=== PATIENT | female | born 1995 | race Caucasian/White ===

== ENCOUNTER 2017-04-26 18:10 | Emergency (ER) | payer OTHER ==
[~2017-04-26] VITALS: Ht 177.8 cm; Wt 110.9 kg
[2017-04-26 18:13] VITALS: TEMP 36.7; Ht 177.8 cm; Wt 110.9 kg
[2017-04-26] MEDS ORDERED: SODIUM CHLORIDE 0.9% 1000ML 1,000 ML IV STA (18:24)
[2017-04-26] MEDS ORDERED: ONDANSETRON INJ 2 MG/ML 2 ML VIAL IV STA (18:24)
[2017-04-26] MEDS: MoRPHine SULFATE 4 MG/ML 1 ML CARP\\VIAL IV PRN ×2 (18:38→21:05)
[2017-04-26 18:48] LABS: BASO % 0.2 %; BASO ABS # 0.02 K/uL (0-0.2); COMPLETE YES; EOS % 0.8 %; HEMATOCRIT 42.4 % (37-47); IG% 0.3 %; LYMPH % 17.5 %; LYMPH ABS # 2.08 K/uL (1.2-3.4); MEAN CORPUSCULAR HEMOGLOBIN 28.9 pg (25-34); MEAN PLATELET VOLUME 11.5 fL (7.4-10.4); MONO % 6.6 %; NEUT % 74.6 %; PLATELET COUNT 272 K/uL (130-400); RED BLOOD COUNT 4.99 M/uL (4.2-5.4)
[2017-04-26 18:56] LABS: URINE APPEARANCE CLOUDY (CLEAR); URINE BILIRUBIN NEG (NEG); URINE COLOR YELLOW; URINE EPITHELIAL CELL AUTO >30 /lpf (0-5); URINE NITRITE NEG (NEG); URINE PH 6.5 (4.5-7.5); URINE SPECIFIC GRAVITY 1.017 (1.000-1.030); UROBILINOGEN NEG (NEG); ZZUR CULT IF INDIC CLEAN CATCH YES
[2017-04-26 18:58] LABS: MANUAL MICROSCOPIC REQUIRED? NO; REVIEW REQ? YES
[2017-04-26 19:01] LABS: BUN/CREATININE RATIO 8.3 (10-20); CALCIUM 10.2 mg/dl (8.5-10.1); CREATININE 0.92 mg/dl (0.60-1.20); POTASSIUM 3.6 mmol/L (3.5-5.1)
[2017-04-26] MEDS ORDERED: OPTIRAY 320 IV PRN (20:45)
--- NOTE | 2017-04-26 21:12 | DIAGNOSTIC IMAGING REPORT ---
CT SCAN OF THE ABDOMEN AND PELVIS WITH IV CONTRAST CLINICAL HISTORY: Right lower quadrant abdominal pain. Nausea and dizziness. COMPARISON STUDY: No priors. TECHNIQUE: Following the IV administration of 115 cc of Optiray 320, CT scan of the abdomen and pelvis is performed from the lung bases to the proximal femora. Images are reviewed in the axial, sagittal, and coronal planes. IV contrast was administered without complication. Automated dose control exposure was utilized. CT DOSE: 952.37 mGy.cm FINDINGS: Lung bases: The heart is normal in size and without pericardial effusion. The lung bases are clear. Liver: The contrast-enhanced liver is enlarged, measuring 20 cm in length. The liver demonstrates diffusely diminished attenuation consistent with hepatic steatosis. There is no intrahepatic biliary ductal dilatation. The hepatic veins and portal veins are patent. Gallbladder: Unremarkable. Spleen: The spleen is enlarged measuring 14.6 cm in length. Pancreas: Unremarkable. Adrenal glands: Unremarkable. Kidneys: The contrast enhanced kidneys are normal in size and without hydronephrosis. The kidneys enhance symmetrically. Abdominal vasculature: The abdominal aorta is normal in course and caliber. Bowel: The small bowel and colon are normal in course and caliber. The appendix is well-visualized and normal. Peritoneum: There is no intraperitoneal free air or abdominal ascites. There is a fat-containing umbilical hernia. Lymphadenopathy: None. Pelvic viscera: The bladder, uterus, and adnexa are normal as visualized. There are numerous bilateral ovarian follicles. There is a small volume of free fluid in the cul-de-sac. Skeletal structures: No lytic or blastic lesions are seen. Large posterior disc bulges are suggested at L4-L5 and L5-S1. Sclerotic change is noted in the sacroiliac joints. IMPRESSION: 1. There are no acute infectious or inflammatory findings in the abdomen or pelvis. 2. Hepatomegaly and hepatic steatosis. 3. Splenomegaly. 4. There is trace and likely physiologic free fluid in the cul-de-sac. Electronically signed by: Giovanni Sosa M.D. 04/26/2017 9:10 PM Dictated Date/Time: 04/26/2017 9:06 PM
[2017-04-27] MEDS ORDERED: SULF800T23 PO (00:07)
[2017-04-27] MEDS ORDERED: SEPTRA DS HOME PACK 1 EA VIAL PO ONE (00:15)
[2017-04-27 00:21] VITALS: BP 141/71; PULSE 65; O2SAT 99
--- NOTE | 2017-04-27 02:59 | EMERGENCY ROOM VISIT NOTE ---
History Report prepared by Nicky: Nova Arnold Under the Supervision of: Dr. Xander Epstein M.D. First contact with patient: 18:15 Chief Complaint: ABDOMINAL PAIN Stated Complaint: SHARP PAIN IN RT SIDE, NAUSEA, DIZZY Nursing Triage Summary: Pt presents with right sided abd pain since Fri, worsening. N/V. Denies fever/chills. Denies back pain or urinary s/sx. History of Present Illness The patient is a 21 year old female who presents to the Emergency Room with complaints of intermittent abdominal pain starting two days ago. The patient currently rates her pain as a 7/10 in severity. The patient describes her pain as sharp. She reports that it has continued to worsen and that the episodes have started coming closer together. The patient notes that the pain is worse with movement and that it is best when she is sitting up. The patient notes that she took Tylenol with no relief. She notes her last normal menstrual period was 3 weeks ago. The patient complains of nausea, loss of appetite, and vomiting. The patient denies LOC, headache, fevers, chills, diaphoresis, visual changes, neck pain, chest pain, breathing difficulties, back pain, melena, hematochezia, urinary symptoms, pelvic pain, vaginal bleeding, vaginal discharge , numbness, weakness, lymphadenopathy, rash, or other complaints. Source of History: patient Onset: two days ago Position: abdomen Symptom Intensity: 7/10 Quality: sharp Timing: intermittent, worsening Modifying Factors (Worsening): movement Modifying Factors (Relieving): other (sitting up) Associated Symptoms: + nausea, + vomiting Note: The patient complains of loss of appetite. Review of Systems See HPI for pertinent positives and negatives. A total of ten systems were reviewed and were otherwise negative. Past Medical & Surgical Medical Problems: (1) Hx of migraines Family History Appendicitis Social History Smoking Status: Never Smoker Marital Status: single Housing Status: lives with roommate Occupation Status: student Current/Historical Medications Scheduled Sulfa/Trimethoprim (Bactrim Ds 800MG/160MG), 1 TAB PO BID Allergies Coded Allergies: No Known Allergies (Unverified , 04/26/17) Physical Exam Vital Signs Date Time Temp Pulse Resp B/P (MAP) Pulse Ox O2 Delivery O2 Flow Rate FiO2 04/27/17 00:21 65 18 141/71 99 7/2/17 23:39 67 18 145/78 99 Room Air 04/26/17 22:00 60 16 130/67 99 Room Air 04/26/17 20:00 65 16 139/74 98 Room Air 04/26/17 19:19 63 04/26/17 18:13 36.7 73 18 159/105 95 Room Air Physical Exam GENERAL: Awake, alert, well-appearing, in no distress HENT: Normocephalic, atraumatic. Oropharynx unremarkable. EYES: Normal conjunctiva. Sclera non-icteric. NECK: Supple. No nuchal rigidity. FROM. No JVD. RESPIRATORY: Clear to auscultation. CARDIAC: Regular rate, normal rhythm. Extremities warm and well perfused. Pulses equal. ABDOMEN: Soft, non-distended. Right lower quadrant tenderness to palpation. Tenderness to percussion. No rebound or guarding. No masses. RECTAL: Deferred. MUSCULOSKELETAL: Chest examination reveals no tenderness. The back is symmetrical on inspection without obvious abnormality. There is right CVA tenderness to palpation. No joint edema. LOWER EXTREMITIES: Calves are equal size bilaterally and non-tender. No edema. No discoloration. NEURO: Normal sensorium. No sensory or motor deficits noted. SKIN: No rash or jaundice noted. Medical Decision & Procedures ER Provider Diagnostic Interpretation: Radiology results as stated below per my review and radiologist interpretation: CT SCAN OF THE ABDOMEN AND PELVIS WITH IV CONTRAST CLINICAL HISTORY: Right lower quadrant abdominal pain. Nausea and dizziness. COMPARISON STUDY: No priors. TECHNIQUE: Following the IV administration of 115 cc of Optiray 320, CT scan of the abdomen and pelvis is performed from the lung bases to the proximal femora. Images are reviewed in the axial, sagittal, and coronal planes. IV contrast was administered without complication. Automated dose control exposure was utilized. CT DOSE: 952.37 mGy.cm FINDINGS: Lung bases: The heart is normal in size and without pericardial effusion. The lung bases are clear. Liver: The contrast-enhanced liver is enlarged, measuring 20 cm in length. The liver demonstrates diffusely diminished attenuation consistent with hepatic steatosis. There is no intrahepatic biliary ductal dilatation. The hepatic veins and portal veins are patent. Gallbladder: Unremarkable. Spleen: The spleen is enlarged measuring 14.6 cm in length. Pancreas: Unremarkable. Adrenal glands: Unremarkable. Kidneys: The contrast enhanced kidneys are normal in size and without hydronephrosis. The kidneys enhance symmetrically. Abdominal vasculature: The abdominal aorta is normal in course and caliber. Bowel: The small bowel and colon are normal in course and caliber. The appendix is well-visualized and normal. Peritoneum: There is no intraperitoneal free air or abdominal ascites. There is a fat-containing umbilical hernia. Lymphadenopathy: None. Pelvic viscera: The bladder, uterus, and adnexa are normal as visualized. There are numerous bilateral ovarian follicles. There is a small volume of free fluid in the cul-de-sac. Skeletal structures: No lytic or blastic lesions are seen. Large posterior disc bulges are suggested at L4-L5 and L5-S1. Sclerotic change is noted in the sacroiliac joints. IMPRESSION: 1. There are no acute infectious or inflammatory findings in the abdomen or pelvis. 2. Hepatomegaly and hepatic steatosis. 3. Splenomegaly. 4. There is trace and likely physiologic free fluid in the cul-de-sac. Electronically signed by: Giovanni Sosa M.D. 04/26/2017 9:10 PM Dictated Date/Time: 04/26/2017 9:06 PM US RUQ: Findings: No gallstones. No wall thickening. Normal caliber CBD. Liver generous in size measuring over 18 cm with increased echogenicity. Pancreas largely obscured. Pancreas had an unremarkable appearance on recent CT. Radiologist: Jovani Serrano M.D. Study ready at 23:33 and initial results transmitted at 00:01. Laboratory Results 04/26/17 17:34 Red Blood Count 4.99, Mean Corpuscular Volume 85.0, Mean Corpuscular Hemoglobin 28.9, Mean Corpuscular Hemoglobin Concent 34.0, Mean Platelet Volume 11.5, Neutrophils (%) (Auto) 74.6, Lymphocytes (%) (Auto) 17.5, Monocytes (%) (Auto) 6.6, Eosinophils (%) (Auto) 0.8, Basophils (%) (Auto) 0.2, Neutrophils # (Auto) 8.89, Lymphocytes # (Auto) 2.08, Monocytes # (Auto) 0.78, Eosinophils # (Auto) 0.10, Basophils # (Auto) 0.02 04/26/17 17:34 Test 04/26/17 17:34 04/26/17 18:40 White Blood Count 11.90 K/uL (4.8-10.8) Red Blood Count 4.99 M/uL (4.2-5.4) Hemoglobin 14.4 g/dL (12.0-16.0) Hematocrit 42.4 % (37-47) Mean Corpuscular Volume 85.0 fL (80-100) Mean Corpuscular Hemoglobin 28.9 pg (25-34) Mean Corpuscular Hemoglobin Concent 34.0 g/dl (32-36) Platelet Count 272 K/uL (130-400) Mean Platelet Volume 11.5 fL (7.4-10.4) Neutrophils (%) (Auto) 74.6 % Lymphocytes (%) (Auto) 17.5 % Monocytes (%) (Auto) 6.6 % Eosinophils (%) (Auto) 0.8 % Basophils (%) (Auto) 0.2 % Neutrophils # (Auto) 8.89 K/uL (1.4-6.5) Lymphocytes # (Auto) 2.08 K/uL (1.2-3.4) Monocytes # (Auto) 0.78 K/uL (0.11-0.59) Eosinophils # (Auto) 0.10 K/uL (0-0.5) Basophils # (Auto) 0.02 K/uL (0-0.2) RDW Standard Deviation 39.4 fL (36.4-46.3) RDW Coefficient of Variation 12.7 % (11.5-14.5) Immature Granulocyte % (Auto) 0.3 % Immature Granulocyte # (Auto) 0.03 K/uL (0.00-0.02) Anion Gap 10.0 mmol/L (3-11) Est Creatinine Clear Calc Drug Dose 132.7 ml/min Estimated GFR () 104.6 Estimated GFR (Non- 90.3 BUN/Creatinine Ratio 8.3 (10-20) Calcium Level 10.2 mg/dl (8.5-10.1) Total Bilirubin 0.7 mg/dl (0.2-1) Direct Bilirubin 0.2 mg/dl (0-0.2) Aspartate Amino Transf (AST/SGOT) 11 U/L (15-37) Alanine Aminotransferase (ALT/SGPT) 32 U/L (12-78) Alkaline Phosphatase 33 U/L (45-117) Total Protein 8.5 gm/dl (6.4-8.2) Albumin 4.7 gm/dl (3.4-5.0) Lipase 103 U/L (73-393) Urine Color YELLOW Urine Appearance CLOUDY (CLEAR) Urine pH 6.5 (4.5-7.5) Urine Specific Sebastian 1.017 (1.000-1.030) Urine Protein NEG (NEG) Urine Glucose (UA) NEG (NEG) Urine Ketones TRACE (NEG) Urine Occult Blood NEG (NEG) Urine Nitrite NEG (NEG) Urine Bilirubin NEG (NEG) Urine Urobilinogen NEG (NEG) Urine Leukocyte Esterase SMALL (NEG) Urine WBC (Auto) 5-10 /hpf (0-5) Urine RBC (Auto) 0-4 /hpf (0-4) Urine Hyaline Casts (Auto) 10-30 /lpf (0-5) Urine Epithelial Cells (Auto) >30 /lpf (0-5) Urine Bacteria (Auto) 1+ (NEG) Urine Renal Epithelial Cells 5-10 /lpf (0-5) Urine Test NEG (NEG) Laboratory results reviewed by me Medications Administered Medications (Trade) Dose Ordered Sig/Jacqueline Route Start Time Stop Time Status Last Admin Dose Admin Sodium Chloride 1,000 ml @ 999 mls/hr Q1H1M STAT IV 04/26/17 18:24 04/26/17 19:24 DC 04/26/17 18:24 999 MLS/HR Ondansetron HCl (Zofran Inj) 4 mg NOW STAT IV 04/26/17 18:24 04/26/17 18:26 DC 04/26/17 18:38 4 MG Morphine Sulfate (MoRPHine SULFATE INJ) 4 mg Q15M PRN IV 04/26/17 18:30 04/27/17 01:15 DC 04/26/17 21:05 4 MG Trimethoprim/ Sulfamethoxazole (Sulfameth/ Trimeth Ds 800/ 160MG Home Pack) 1 homepack UD ONCE PO 04/27/17 00:15 04/27/17 00:16 DC 04/27/17 00:13 1 HOMEPACK ED Course 1821: The patient was evaluated in room C10. A complete history and physical exam was performed. 1823: Ordered Zofran Inj 4 mg IV, NSS 1000 ml @ 999 mls/hr IV. 1829: Ordered Morphine Sulfate 4 mg PRN IV pain. 0: I reevaluated the patient and she is doing well, but still in some pain so we are going to do an US of the gallbladder. 0015: Ordered Trimethoprim/ Sulfamethoxazole 1 homepack PO. 0022: I reevaluated the patient. Discussed results and discharge instructions: She verbalized understanding and agreement. The patient is ready for discharge. Medical Decision Medication Reconciliation: I attest that I have personally reviewed the patient' s current medication list Blood pressure screening: Patient was found to have an elevated blood pressure and was referred to their primary doctor for recheck and further treatment. Triage Nursing notes reviewed. The patient's presentation and history were concerning for abdominal pain. Etiologies such as appendicitis, ovarian pathology, diverticulitis, obstruction , inflammatory bowel disease, renal colic, PUD, biliary pathology, pancreatitis , mesenteric ischemia, aortic pathology, infections, genitourinary, UTI, perforated viscus, as well as others were entertained. The patient had RLQ tenderness with percussion and palpation. She was hydrated and treated with zofran and morphine. CBC showed a mild leukocytosis and her urine was neg. was negative as well. The patient underwent CT imaging. CT imaging did not reveal any evidence of acute appendicitis or colitis. The patient was reassessed. She still had discomfort on the right side. She underwent gallbladder imaging which did not reveal any acute evidence of cholecystitis. The patient's urinalysis was somewhat concerning. She did have CVA tenderness. Given the leukocytosis, CVA tenderness, and urinalysis a culture was sent. The patient was informed. She will be started on Bactrim. First dose was given in the Emergency Room. Close outpatient follow-up was recommended. Patient was in agreement. Patient also follow-up regarding her imaging results. I gave my usual and customary discussion regarding this issue. By the evaluation outlined above other emergent etiologies such as those listed in the differential, as well as others, were deemed relatively unlikely. The patient was educated about the findings as listed above. All questions were answered and the patient was pleased with the treatment. Return instructions were outlined and the patient was discharged in stable condition. The patient was referred to her PCP for follow-up for a recheck of the current condition. Impression Primary Impression: Right lower quadrant abdominal pain Additional Impressions: Right flank pain UTI (urinary tract infection) Scribe Attestation The scribe's documentation has been prepared under my direction and personally reviewed by me in its entirety. I confirm that the note above accurately reflects all work, treatment, procedures, and medical decision making performed by me. Departure Information Dispostion Home / Self-Care Prescriptions Sulfa/Trimethoprim (Bactrim Ds 800MG/160MG) Tab 1 TAB PO BID, #12 TAB Prov: Xander Epstein MD 04/27/17 Referrals No Doctor, Assigned (PCP) Forms HOME CARE DOCUMENTATION FORM, IMPORTANT VISIT INFORMATION Patient Instructions My [facility] Additional Instructions Trimethoprim-Sulfamethoxazole(Bactrim DS): Take one pill twice daily for 7 days for your urine infection. All antibiotics can cause diarrhea. If this occurs and you feel worse or it does not resolve in 1-2 days follow up with your doctor or return to the Emergency Department as this could be signs of serious underlying problems. Any medication can cause an allergic reaction, stop the pills immediately and return to the ER for rash, hives, breathing difficulties, or swelling. Ibuprofen(Motrin, Advil) may be used for fever or pain. Use 600mg every six hours as needed. Take with food. Avoid using more than 2400mg in a 24 hour period. Do not use 2400mg per day for more than three consecutive days without physician direction. Prolonged inappropriate use can lead to stomach upset or ulcers. (AND/OR) Acetaminophen(Tylenol) may be used for fever or pain. Use 1000mg every six hours as needed. Avoid using more than 4000mg in a 24 hour period. Rest and drink plenty of fluids. Continue current medications. Return to the ER immediately for worsening or persistent abdominal pain, vomiting, fevers, back or flank pain, worsening of your condition, or as needed. Follow up with your primary physician within 2-3 days for a recheck of the current condition. Problem Qualifiers
--- NOTE | 2017-04-27 07:12 | DIAGNOSTIC IMAGING REPORT ---
BILIARY ULTRASOUND CLINICAL HISTORY: Right upper quadrant abdominal pain COMPARISON STUDY: CT scan dated 04/26/2017 FINDINGS: The pancreas appears normal as visualized. No focal hepatic masses are visualized. There is no ductal dilatation. There is no evidence of right-sided hydronephrosis. The gallbladder appears sonographically normal. The common bile duct measures 4 mm. There is slight increase in hepatic echogenicity. Mild hepatic steatosis cannot be excluded. IMPRESSION: 1. Probable mild hepatic steatosis. 2. Sonographically normal gallbladder. No evidence of ductal dilatation. Electronically signed by: Remy Charlton M.D. 04/27/2017 7:11 AM Dictated Date/Time: 04/27/2017 7:10 AM
== END 2017-04-27 00:24 | disposition home or self-care (01) ==
LOC: C.EDB 18:12 → C.EDC 04-27 00:24
DX: R10.31 Right lower quadrant pain (principal); R10.30 Lower abdominal pain, unspecified; N39.0 Urinary tract infection, site not specified; D72.829 Elevated white blood cell count, unspecified; N28.89 Other specified disorders of kidney and ureter